=== PATIENT | female | born 1955 | race African-American/Black ===

== ENCOUNTER 2018-11-13 17:08 | Inpatient (IN) | payer MEDICARE, MEDICAID ==
[~2018-11-13] VITALS: Ht 160 cm; Wt 90.7 kg
[~2018-11-13 17:08] MED LIST: AMLO5TAB88 PO; FAMO40TA7 PO; HYDR-3735 GT; HYDR200T35 PO; METH2.5T PO; REQ1 PO; SERT50TA PO; TRAMADOL
[2018-11-13 19:29] LABS: CHLORIDE 109 mEq/L (98-107)
[2018-11-13 19:34] LABS: BASOPHILS % 0.9 % (0.0-2.0); EOSINOPHILS % 1.2 % (0.0-5.0); HEMATOCRIT. 39.7 % (36.0-48.0); HEMOGLOBIN. 12.9 g/dL (12.0-16.0); LYMPHOCYTES % 19.3 % (20.0-50.0); MEAN CORPUSCULAR HEMOGLOBIN 27.3 pg (28.0-32.0); MEAN CORPUSCULAR VOLUME 84.5 fL (81.0-99.0); MEAN PLATELET VOLUME 8.8 fl (7.4-10.4); MONOCYTES % 7.5 % (2.0-8.0); NEUTROPHILS % 71.1 % (40.0-76.0); PLATELET 216 x1000/uL (130-400); RED CELL DISTRIBUTION WIDTH 17.2 % (11.6-14.6)
[2018-11-13] MEDS ORDERED: ASPIRIN 81MG TABLET PO ONE (20:30)
[2018-11-13] MEDS ORDERED: FUROSEMIDE 40MG/4ML VIAL IVP ONE (20:30)
[2018-11-13] MEDS ORDERED: LABETALOL 5MG/ML SYR 20 MG/4 ML SYRINGE IV ONE (20:45)
[2018-11-13 23:00] VITALS: BP 178/97
[2018-11-13 23:20] VITALS: BP 178/97
[2018-11-13] MEDS ORDERED: ACETAMINOPHEN 650MG/20.3ML UDC GT PRN (23:45)
[2018-11-13] MEDS ORDERED: ACETAMINOPHEN 325MG TABLET PO PRN (23:45)
[2018-11-13] MEDS ORDERED: HYDROCODONE/ACETAMINOPHEN 5/325MG TABLET PO PRN (23:45)
[2018-11-13] MEDS ORDERED: NA PHOS,M-B/NA PHOS,DI-BA ENEMA 118ML PR PRN (23:45)
[2018-11-13] MEDS ORDERED: GUAIFENESIN 200MG/10ML SUGAR FREE UDC PO PRN (23:45)
[2018-11-13] MEDS ORDERED: DIPHENHYDRAMINE 50MG/ML VIAL IV PRN (23:45)
[2018-11-13] MEDS ORDERED: MAGNESIUM/ALUMINUM HYDROXIDE/SIMETHICONE 30ML UDC PO PRN (23:45)
[2018-11-13] MEDS ORDERED: HYDROCODONE/ACETAMINOPHEN 10/325MG TABLET PO PRN (23:45)
[2018-11-13] MEDS ORDERED: IPRATROPIUM/ALBUTEROL 0.5-3(2.5)MG/3ML NEB INH PRN (23:45)
[2018-11-13] MEDS ORDERED: ACETAMINOPHEN 650MG SUPP PR PRN (23:45)
[2018-11-13] MEDS ORDERED: ONDANSETRON HCL 4MG/2ML INJ IV PRN (23:45)
[2018-11-13] MEDS ORDERED: DOCUSATE SODIUM 100MG CAPSULE PO PRN (23:45)
[2018-11-14] VITALS: BP 178/97
[2018-11-14] MEDS: CLONIDINE 0.1MG TABLET PO PRN ×2 (00:34→15:35)
[2018-11-14 04:00] VITALS: BP 155/84
[2018-11-14] MEDS: SODIUM CHLORIDE 0.9% INJ 3ML FLUSH IVF SCH ×3 (05:48→21:48)
[2018-11-14 06:57] LABS: CHLORIDE 108 mEq/L (98-107)
[2018-11-14 06:58] LABS: BASOPHILS % 0.3 % (0.0-2.0); EOSINOPHILS % 0.9 % (0.0-5.0); HEMATOCRIT. 37.9 % (36.0-48.0); HEMOGLOBIN. 12.5 g/dL (12.0-16.0); MEAN CORPUSCULAR HEMOGLOBIN 27.6 pg (28.0-32.0); MEAN CORPUSCULAR VOLUME 83.6 fL (81.0-99.0); MEAN PLATELET VOLUME 8.8 fl (7.4-10.4); MONOCYTES % 8.7 % (2.0-8.0); NEUTROPHILS % 76.1 % (40.0-76.0); PLATELET 197 x1000/uL (130-400); RED BLOOD CELL COUNT 4.54 mill/uL (4.2-5.4)
[2018-11-14 07:30] LABS: LDL CHOLESTEROL 63 mg/dL (5-100)
[2018-11-14 07:31] LABS: CREATINE KINASE 23 IU/L (26-192)
[2018-11-14 07:33] LABS: HDL CHOLESTEROL 60 mg/dL (40-59)
[2018-11-14 07:36] LABS: CREATINE KINASE MB FRACTION < 1.0 ng/mL (0.5-3.6)
[2018-11-14] MEDS ORDERED: PNEUMOCOCCAL 23-VAL P-SAC VAC 0.5 ML IM ONE (08:00)
[2018-11-14] MEDS ORDERED: ENOXAPARIN 40MG/0.4ML SYR SUBCUT SCH (09:00)
[2018-11-14] MEDS ORDERED: FUROSEMIDE 40MG/4ML VIAL IV SCH (09:00)
[2018-11-14] MEDS ORDERED: INFLUENZA VIRUS VACCINE(AFLURIA) 0.5ML SYR IM ONE (10:00)
[2018-11-14] MEDS: ASPIRIN 81MG TABLET PO SCH (10:05)
[2018-11-14] MEDS: LOSARTAN POTASSIUM 50 MG TABLET PO SCH (10:05)
[2018-11-14] MEDS: CARVEDILOL 6.25 MG TABLET PO SCH ×2 (10:06→21:42)
[2018-11-14] MEDS: POTASSIUM CHLORIDE 20MEQ TABLET SR PO SCH (10:06)
[2018-11-14 12:00] VITALS: BP 127/61
[2018-11-14 15:56] LABS: CREATINE KINASE 29 IU/L (26-192); CREATINE KINASE MB FRACTION < 1.0 ng/mL (0.5-3.6)
[2018-11-14] MEDS: FUROSEMIDE 40MG/4ML VIAL IV SCH (16:33)
[2018-11-14 16:41] VITALS: BP 158/81
[2018-11-14] MEDS ORDERED: POTASSIUM CHLORIDE 20MEQ TABLET SR PO PRN (17:00)
[2018-11-14 20:00] VITALS: BP 123/60
[2018-11-14] MEDS: ENOXAPARIN 30MG/0.3ML SYR SUBCUT SCH (21:43)
[2018-11-15] VITALS (8 sets, daily range): BP systolic 107–164; BP diastolic 52–100
[2018-11-15] MEDS: POTASSIUM CHLORIDE 20MEQ TABLET SR PO SCH (09:52)
[2018-11-15] MEDS: LOSARTAN POTASSIUM 50 MG TABLET PO SCH (09:52)
[2018-11-15] MEDS: ASPIRIN 81MG TABLET PO SCH (09:52)
[2018-11-15] MEDS: CARVEDILOL 6.25 MG TABLET PO SCH ×2 (09:52→21:26)
[2018-11-15] MEDS: FUROSEMIDE 40MG/4ML VIAL IV SCH ×2 (09:53→17:56)
[2018-11-15] MEDS: ENOXAPARIN 30MG/0.3ML SYR SUBCUT SCH ×2 (10:00→21:28)
[2018-11-15] MEDS: SODIUM CHLORIDE 0.9% INJ 3ML FLUSH IVF SCH ×3 (10:00→22:00)
[2018-11-15] MEDS ORDERED: SIMETHICONE 80MG TABLET CHEW PO PRN (14:30)
[2018-11-15] MEDS ORDERED: MAGNESIUM CITRATE 300ML SOLUTION PO NR (15:30)
[2018-11-15] MEDS ORDERED: MAGNESIUM HYDROXIDE 400MG/5ML 30ML UDC PO PRN (17:30)
[2018-11-15] MEDS ORDERED: BISACODYL 5MG TABLET PO PRN (17:30)
[2018-11-15] MEDS ORDERED: BISACODYL 10MG SUPP PR PRN (20:00)
[2018-11-15 21:28] LABS: BASOPHILS % 0.7 % (0.0-2.0); EOSINOPHILS % 2.4 % (0.0-5.0); HEMATOCRIT. 40.2 % (36.0-48.0); HEMOGLOBIN. 13.1 g/dL (12.0-16.0); LYMPHOCYTES % 20.1 % (20.0-50.0); MEAN CORPUSCULAR HEMOGLOBIN 27.5 pg (28.0-32.0); MEAN CORPUSCULAR VOLUME 84.3 fL (81.0-99.0); MONOCYTES % 10.1 % (2.0-8.0); NEUTROPHILS % 66.7 % (40.0-76.0); PLATELET 215 x1000/uL (130-400); RED BLOOD CELL COUNT 4.77 mill/uL (4.2-5.4)
[2018-11-15 21:39] LABS: CHLORIDE 104 mEq/L (98-107)
[2018-11-16] VITALS: BP 119/68
[2018-11-16 04:00] VITALS: BP 112/58
[2018-11-16] MEDS: SODIUM CHLORIDE 0.9% INJ 3ML FLUSH IVF SCH ×3 (05:20→21:09)
[2018-11-16 08:00] VITALS: BP 150/61
[2018-11-16] MEDS: ENOXAPARIN 30MG/0.3ML SYR SUBCUT SCH ×2 (10:36→21:08)
[2018-11-16] MEDS: CARVEDILOL 6.25 MG TABLET PO SCH (10:37)
[2018-11-16] MEDS: POTASSIUM CHLORIDE 20MEQ TABLET SR PO SCH (10:37)
[2018-11-16] MEDS: LOSARTAN POTASSIUM 50 MG TABLET PO SCH (10:38)
[2018-11-16] MEDS: ASPIRIN 81MG TABLET PO SCH (10:38)
[2018-11-16] MEDS: FUROSEMIDE 40MG/4ML VIAL IV SCH (10:38)
[2018-11-16 12:00] VITALS: BP 122/58
[2018-11-16 16:00] VITALS: BP 127/78
[2018-11-16 20:00] VITALS: BP 124/65
[2018-11-16] MEDS: FUROSEMIDE 40MG TABLET PO SCH (21:08)
[2018-11-16] MEDS: CARVEDILOL 3.125 MG TABLET PO SCH (21:08)
[2018-11-16] MEDS ORDERED: COR3 PO (22:00)
[2018-11-16] MEDS ORDERED: FURO40TA5 PO (22:00)
[2018-11-16] MEDS ORDERED: ASPI-1160 PO (22:00)
[2018-11-16] MEDS ORDERED: LOSA50TA3 PO (22:00)
[2018-11-17] VITALS: BP 110/58
[2018-11-17 04:00] VITALS: BP 124/68
[2018-11-17] MEDS: SODIUM CHLORIDE 0.9% INJ 3ML FLUSH IVF SCH (05:27)
[2018-11-17 07:08] LABS: CHLORIDE 105 mEq/L (98-107)
[2018-11-17 08:00] VITALS: BP 124/61
[2018-11-17 08:11] LABS: BASOPHILS % 0.6 % (0.0-2.0); EOSINOPHILS % 2.9 % (0.0-5.0); HEMATOCRIT. 37.3 % (36.0-48.0); HEMOGLOBIN. 11.9 g/dL (12.0-16.0); LYMPHOCYTES % 23.3 % (20.0-50.0); MEAN CORPUSCULAR HEMOGLOBIN 27.1 pg (28.0-32.0); MEAN CORPUSCULAR VOLUME 84.9 fL (81.0-99.0); MEAN PLATELET VOLUME 9.5 fl (7.4-10.4); MONOCYTES % 13.4 % (2.0-8.0); NEUTROPHILS % 59.8 % (40.0-76.0); PLATELET 214 x1000/uL (130-400); RED CELL DISTRIBUTION WIDTH 16.5 % (11.6-14.6)
[2018-11-17] MEDS: FUROSEMIDE 40MG TABLET PO SCH (09:03)
[2018-11-17] MEDS: ASPIRIN 81MG TABLET PO SCH (09:03)
[2018-11-17] MEDS: POTASSIUM CHLORIDE 20MEQ TABLET SR PO SCH (09:03)
[2018-11-17] MEDS: LOSARTAN POTASSIUM 50 MG TABLET PO SCH (09:04)
[2018-11-17] MEDS: CARVEDILOL 3.125 MG TABLET PO SCH (09:04)
[2018-11-17] MEDS: ENOXAPARIN 30MG/0.3ML SYR SUBCUT SCH (09:04)
[2018-11-17 12:00] VITALS: BP 160/61
[2018-11-17] MEDS: CLONIDINE 0.1MG TABLET PO PRN (12:47)
[2018-11-17 14:12] VITALS: BP 96/54
== END 2018-11-17 15:00 | disposition home or self-care (01) | DRG 292 ==
LOC: ER 17:08 → 8WST 20:50 → ENRESERV 21:45
PROVIDERS: ADMIT Family Medicine; ATTEND Family Medicine
DX: I11.0 Hypertensive heart disease with heart failure (principal); E44.1 Mild protein-calorie malnutrition; I27.20 Pulmonary hypertension, unspecified; I50.33 Acute on chronic diastolic (congestive) heart failure; I16.0 Hypertensive urgency; E87.6 Hypokalemia; G89.4 Chronic pain syndrome; F32.9 Major depressive disorder, single episode, unspecified; M19.90 Unspecified osteoarthritis, unspecified site; E78.5 Hyperlipidemia, unspecified; J44.9 Chronic obstructive pulmonary disease, unspecified; M06.9 Rheumatoid arthritis, unspecified; K21.9 Gastro-esophageal reflux disease without esophagitis; H54.62 Unqualified visual loss, left eye, normal vision right eye; Z79.899 Other long term (current) drug therapy; Z90.710 Acquired absence of both cervix and uterus; Z68.35 Body mass index [BMI] 35.0-35.9, adult
CPT/HCPCS: 36415; 71045; 80048; 80061; 82550; 82553; 83036; 83880; 84484; 90686; 90732; 93005; 93306; 94640; 96374; 96375; 99291; C1893; J1650; J1940; J3490; J7620

== ENCOUNTER 2019-10-06 13:08 | Inpatient (IN) | payer MEDICARE, MEDICAID ==
[~2019-10-06] VITALS: Ht 160 cm; Wt 90.8 kg
[~2019-10-06 13:08] MED LIST changes: +ASPI-1160 PO; +COR3 PO; +FURO40TA5 PO; +LOSA50TA3 PO; -TRAMADOL; +TRAMADOL PO
[2019-10-06] MEDS ORDERED: ONDANSETRON HCL 4MG/2ML INJ IV STA (22:05)
[2019-10-06] MEDS ORDERED: MORPHINE SULFATE 4 MG/ML CPJ (NOT FOR IM USE) IV STA (22:05)
[2019-10-06] MEDS ORDERED: KETOROLAC 30MG/ML VIAL IV STA (22:05)
[2019-10-06] MEDS ORDERED: IPRATROPIUM/ALBUTEROL 0.5-3(2.5)MG/3ML NEB HHN ONE (22:15)
[2019-10-06 22:58] LABS: BASOPHILS % 0.6 % (0.0-2.0); EOSINOPHILS % 1.4 % (0.0-5.0); HEMATOCRIT. 42.4 % (36.0-48.0); HEMOGLOBIN. 13.9 g/dL (12.0-16.0); LYMPHOCYTES % 20.9 % (20.0-50.0); MEAN CORPUSCULAR HEMOGLOBIN 27.6 pg (28.0-32.0); MEAN CORPUSCULAR VOLUME 84.4 fL (81.0-99.0); MEAN PLATELET VOLUME 8.8 fl (7.4-10.4); NEUTROPHILS % 65.1 % (40.0-76.0); PLATELET 237 x1000/uL (130-400); RED BLOOD CELL COUNT 5.03 mill/uL (4.2-5.4); RED CELL DISTRIBUTION WIDTH 13.9 % (11.6-14.6)
[2019-10-06 23:05] LABS: CHLORIDE 106 mEq/L (98-107)
[2019-10-06 23:08] LABS: ETHANOL BLOOD < 10 mg/dL; INR 1.1; PARTIAL THROMBOPLASTIN TIME 32.2 sec (23.4-31.0); PROTHROMBIN TIME 11.1 sec (9.6-11.0)
[2019-10-07] MEDS ORDERED: MORPHINE SULFATE 2 MG/ML CPJ (NOT FOR IM USE) IV PRN (00:30)
[2019-10-07] MEDS ORDERED: GUAIFENESIN 200MG/10ML SUGAR FREE UDC PO PRN (00:30)
[2019-10-07] MEDS ORDERED: DOCUSATE SODIUM 100MG CAPSULE PO PRN (00:30)
[2019-10-07] MEDS ORDERED: IPRATROPIUM/ALBUTEROL 0.5-3(2.5)MG/3ML NEB HHN PRN (00:30)
[2019-10-07] MEDS ORDERED: CLONIDINE 0.1MG TABLET PO PRN (00:30)
[2019-10-07] MEDS ORDERED: LORAZEPAM 2MG/ML CPJ IV PRN (00:30)
[2019-10-07] MEDS ORDERED: ACETAMINOPHEN 325MG TABLET PO PRN (00:30)
[2019-10-07] MEDS ORDERED: DIPHENHYDRAMINE 50MG/ML VIAL IV PRN (00:30)
[2019-10-07] MEDS ORDERED: ENOXAPARIN 40MG/0.4ML SYR SUBCUT SCH (00:30)
[2019-10-07] MEDS ORDERED: ONDANSETRON HCL 4MG/2ML INJ IV PRN (00:30)
[2019-10-07] MEDS ORDERED: MAGNESIUM/ALUMINUM HYDROXIDE/SIMETHICONE 30ML UDC PO PRN (00:30)
[2019-10-07] MEDS ORDERED: POTASSIUM CHLORIDE 20MEQ TABLET SR PO NR (00:30)
[2019-10-07] MEDS ORDERED: IOHEXOL-350 100 ML BOTTLE ONE (02:57)
[2019-10-07 06:35] LABS: CREATINE KINASE 35 IU/L (26-192); CREATINE KINASE MB FRACTION < 1.0 ng/mL (0.5-3.6)
[2019-10-07 09:00] VITALS: BP 173/85
[2019-10-07] MEDS ORDERED: HYDRALAZINE 20MG/ML VIAL IV PRN (09:00)
[2019-10-07] MEDS: HYDROCODONE/ACETAMINOPHEN 10/325MG TABLET PO PRN ×2 (09:34→19:03)
[2019-10-07] MEDS: ENOXAPARIN 30MG/0.3ML SYR SUBCUT SCH ×2 (10:56→22:00)
[2019-10-07 12:00] VITALS: BP 150/70
[2019-10-07] MEDS: ASPIRIN 81MG TABLET PO SCH (12:25)
[2019-10-07] MEDS: LOSARTAN POTASSIUM 25 MG TABLET PO SCH (12:26)
[2019-10-07] MEDS: AMLODIPINE 5MG TABLET PO SCH ×2 (12:26→21:59)
[2019-10-07] MEDS: CARVEDILOL 6.25 MG TABLET PO SCH ×2 (12:26→21:59)
[2019-10-07] MEDS: SODIUM CHLORIDE 0.9% INJ 3ML FLUSH IVF SCH ×2 (14:00→22:00)
[2019-10-07 16:00] VITALS: BP 158/84
[2019-10-07 16:56] LABS: CREATINE KINASE 38 IU/L (26-192)
[2019-10-07 16:57] LABS: CREATINE KINASE MB FRACTION < 1.0 ng/mL (0.5-3.6)
[2019-10-07 20:00] VITALS: BP 143/71
[2019-10-08] VITALS: BP 111/49
[2019-10-08 04:00] VITALS: BP 128/59
[2019-10-08] MEDS: SODIUM CHLORIDE 0.9% INJ 3ML FLUSH IVF SCH (05:56)
[2019-10-08 08:04] LABS: BASOPHILS % 0.5 % (0.0-2.0); EOSINOPHILS % 5.5 % (0.0-5.0); HEMOGLOBIN. 12.3 g/dL (12.0-16.0); LYMPHOCYTES % 21.5 % (20.0-50.0); MEAN CORPUSCULAR HEMOGLOBIN 28.2 pg (28.0-32.0); MEAN PLATELET VOLUME 8.9 fl (7.4-10.4); MONOCYTES % 13.3 % (2.0-8.0); NEUTROPHILS % 59.2 % (40.0-76.0); PLATELET 214 x1000/uL (130-400); RED BLOOD CELL COUNT 4.35 mill/uL (4.2-5.4)
[2019-10-08 09:07] LABS: CHLORIDE 109 mEq/L (98-107)
[2019-10-08] MEDS: ASPIRIN 81MG TABLET PO SCH (09:55)
[2019-10-08] MEDS: ENOXAPARIN 30MG/0.3ML SYR SUBCUT SCH (09:55)
[2019-10-08] MEDS: AMLODIPINE 5MG TABLET PO SCH (09:56)
[2019-10-08] MEDS: LOSARTAN POTASSIUM 25 MG TABLET PO SCH (09:56)
[2019-10-08] MEDS: CARVEDILOL 6.25 MG TABLET PO SCH (09:56)
[2019-10-08 10:02] VITALS: BP 151/70
[2019-10-08 12:00] VITALS: BP 137/77
== END 2019-10-08 13:00 | disposition home or self-care (01) | DRG 291 ==
LOC: ER 13:08 → 5WST 23:52 → EDBEDREQ 23:54 → EDBEDREQTM 23:54 → ENRESERV 10-07 07:51
PROVIDERS: ADMIT Internal Medicine; ATTEND Internal Medicine
DX: I11.0 Hypertensive heart disease with heart failure (principal); J96.00 Acute respiratory failure, unspecified whether with hypoxia or hypercapnia; I50.33 Acute on chronic diastolic (congestive) heart failure; I42.9 Cardiomyopathy, unspecified; J44.9 Chronic obstructive pulmonary disease, unspecified; E78.5 Hyperlipidemia, unspecified; E87.6 Hypokalemia; R07.89 Other chest pain; E66.9 Obesity, unspecified; M06.9 Rheumatoid arthritis, unspecified; Z90.710 Acquired absence of both cervix and uterus; Z79.899 Other long term (current) drug therapy; Z87.891 Personal history of nicotine dependence; Z79.82 Long term (current) use of aspirin; Z68.35 Body mass index [BMI] 35.0-35.9, adult
CPT/HCPCS: 36415; 71045; 71275; 80053; 80320; 82550; 82553; 83605; 83735; 83880; 84484; 85025; 93005; 93306; 93970; 94640; 99285; J0360; J1200; J1650; J1885; J2270; J2405; Q9967; G0480